=== PATIENT | female | born 1955 | race African-American/Black ===

== ENCOUNTER 2023-07-20 13:13 | Emergency (ER) | payer OTHER ==
[2023-07-20 13:17] VITALS: BP 131/80; PULSE 69; RESP 18; TEMP 98.1; BMI 31.6
[2023-07-20 14:31] LABS: EOS % 3.3 % (0-4.5); HEMATOCRIT 37.2 % (32.4-45.2); LYMPH % 42.1 % (8-40); MCH 29.7 pg (25.7-33.7); MCHC 32.2 g/dl (32.0-36.0); MEAN CELL VOLUME 92.1 fl (80-96); MONO % 7.2 % (3.8-10.2); NEUT % 46.4 % (42.8-82.8); PLATELET COUNT 280 10^3/uL (134-434); RBC 4.04 M/mm3 (3.60-5.2); RDW 14.6 % (11.6-15.6); WHITE BLOOD COUNT 7.5 K/mm3 (4.0-10.0)
[2023-07-20 14:52] LABS: POTASSIUM 4.2 mmol/L (3.5-5.1)
[2023-07-20 14:54] LABS: ALBUMIN 3.6 g/dl (3.4-5.0); BLOOD UREA NITROGEN 15.4 mg/dL (7-18); CALCIUM 8.7 mg/dL (8.5-10.1)
[2023-07-20 14:57] LABS: CREATININE 0.7 mg/dL (0.55-1.3); PHOSPHOROUS 3.2 mg/dL (2.5-4.9)
[2023-07-20 14:59] LABS: BILIRUBIN,TOTAL 0.4 mg/dL (0.2-1); TOT PROT 7.7 g/dl (6.4-8.2)
[2023-07-20 16:00] LABS: HIV INTERPRETATION NEGATIVE (NEGATIVE)
== END 2023-07-20 14:25 | disposition home or self-care (01) ==
LOC: JERFT 13:13
DX: S61.031A Puncture wound without foreign body of right thumb without damage to nail, initial encounter (principal); X58.XXXA Exposure to other specified factors, initial encounter
CPT/HCPCS: 36415; 80053; 82465; 82977; 84100; 85025; 86704; 86803; 87340; 87389; 87517; 99283-25